=== PATIENT | female | born 2000 | race Caucasian/White ===

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

== ENCOUNTER 2018-03-10 04:42 | Emergency (ER) | payer MEDICAID ==
[~2018-03-10] VITALS: Ht 165.1 cm; Wt 97.7 kg
[2018-03-10 05:13] VITALS: BP 129/85; Ht 165.1 cm; Wt 97.7 kg
== END 2018-03-10 07:14 | disposition home or self-care (01) ==
LOC: ED 04:42
DX: H60.93 Unspecified otitis externa, bilateral (principal); Z88.0 Allergy status to penicillin